=== PATIENT | male | born 1985 | race Caucasian/White ===

== ENCOUNTER 2017-02-25 18:31 | Emergency (ER) | payer OTHER ==
[2017-02-25 18:41] VITALS: BP 125/65
[2017-02-25] MEDS ORDERED: predniSONE TAB* 20 MG PO ONE (19:07)
--- NOTE | 2017-02-25 19:07 | UC ---
Skin Complaint HPI - HPI Summary HPI Summary: red raised itchy rash on arms abd and back his all developed in the past few hours, itchy,but not painful, no vesicles, unsure of what the exposure could be to - History of Current Complaint Chief Complaint: UCRespiratory Time Seen by Provider: 02/25/17 18:53 Stated Complaint: RASH/REACTION- Hx Obtained From: Patient Onset/Duration: Sudden Onset, Lasting Hours, Still Present Skin Exposure Onset/Duration: Minutes Ago - UNsure of exposure or how long ago Timing: Constant Onset Severity: Moderate Current Severity: Moderate Location: Diffuse Character: Redness, Raised Aggravating: Nothing Alleviating: Nothing - Allergy/Home Medications Allergies/Adverse Reactions: Allergies Allergy/AdvReac Type Severity Reaction Status Date / Time Unable to Obtain Allergy Verified 02/25/17 18:41 Review of Systems Constitutional: Negative Skin: Rash Eyes: Negative ENT: Negative Respiratory: Negative Cardiovascular: Negative Gastrointestinal: Negative Genitourinary: Negative Motor: Negative Neurovascular: Negative Musculoskeletal: Negative Neurological: Negative Psychological: Negative All Other Systems Reviewed And Are Negative: Yes PMH/Surg Hx/FS Hx/Imm Hx Previously Healthy: Yes - Surgical History Surgical History: None - Family History Known Family History: Positive: None - Social History Occupation: Unemployed Alcohol Use: Occasionally Substance Use Type: None Smoking Status (MU): Never Smoked Tobacco Physical Exam Triage Information Reviewed: Yes Appearance: Well-Appearing, No Pain Distress, Well-Nourished Vital Signs: Initial Vital Signs Temp 98.6 F 02/25/17 18:37 Pulse 87 02/25/17 18:37 Resp 18 02/25/17 18:37 BP 125/65 02/25/17 18:37 Pulse Ox 100 02/25/17 18:37 Vital Signs Reviewed: Yes Eye Exam: Normal Eyes: Positive: Conjunctiva Clear ENT Exam: Normal ENT: Positive: Normal ENT inspection, Hearing grossly normal, Pharynx normal, TMs normal. Negative: Nasal congestion, Nasal drainage, Trismus, Muffled/ hoarse voice Dental Exam: Normal Neck exam: Normal Neck: Positive: Supple, Nontender, No Lymphadenopathy Respiratory Exam: Normal Respiratory: Positive: Chest non-tender, Lungs clear, Normal breath sounds, No respiratory distress, No accessory muscle use Cardiovascular Exam: Normal Cardiovascular: Positive: RRR, No Murmur, Pulses Normal, Brisk Capillary Refill Musculoskeletal Exam: Normal Musculoskeletal: Positive: Strength Intact, ROM Intact, No Edema Neurological Exam: Normal Neurological: Positive: Alert, Muscle Tone Normal Psychological Exam: Normal Psychological: Positive: Normal Response To Family Skin Exam: Normal Skin: Positive: rashes - urticaraback abd and both arms Course/Dx - Course Course Of Treatment: Benadryl, prednisone, continue for 3-4 days follow with pcp prn - Differential Diagnoses - Skin Complaint Differential Diagnoses: Allergic Reaction, Anaphylaxis, Contact Dermatitis, Local Allergic Reaction, Poison Mayte - Diagnoses Provider Diagnoses: Urticaria Discharge - Discharge Plan Condition: Stable Disposition: HOME Prescriptions: predniSONE TAB* [Deltasone TAB*] 20 mg PO DAILY #8 tab Patient Education Materials: Diphenhydramine (By mouth), Contact Dermatitis (ED ), Cold Compress or Soak (ED) Referrals: Daniela Faust MD [Primary Care Provider] - If Needed
[2017-02-25] MEDS ORDERED: diPHENhydraMINE PO* 25 MG PO ONE (19:08)
== END 2017-02-25 19:33 | disposition home or self-care (01) ==
LOC: UCEAST 18:31
DX: L50.9 Urticaria, unspecified (principal)
CPT/HCPCS: 99212; A9270-GY; G0463; J7512